=== PATIENT | male | born 1955 | race Caucasian/White ===

== ENCOUNTER 2023-12-13 03:50 | Emergency (ER) | payer OTHER ==
[~2023-12-13] VITALS: Ht 177.8 cm; Wt 79.4 kg
[~2023-12-13 03:50] MED LIST: ALLOPURINOL100 MG PO; AMITRIPTYLINE10 MG PO; CEFUROXIME AXE500 MG PO; GLUCOPHAGE500 MG PO; MELATONIN3 MG PO; MUCINEX1200 M1 PO; PRAZOSIN HCL5 MG PO; SIMVASTATIN40 MG PO; SIMVASTATIN5 MG PO; SINGULAIR10 M1 PO; SINGULAIR5 MG PO; SYMB160 INH; VENT7GM INH; ZITHROMAX250 MG PO
[2023-12-13] MEDS ORDERED: Bacitracin Zinc 14 GM TUBE T ONE (04:00)
[2023-12-13] MEDS ORDERED: Ketorolac Tromethamine 30 MG/ML VIAL IM ONE (06:50)
[2023-12-13] MEDS ORDERED: TRAMADOL HCL50 MG PO (08:31)
[2023-12-13] MEDS ORDERED: BACITRACIN28.4 GM TD (08:31)
== END 2023-12-13 08:54 | disposition home or self-care (01) ==
LOC: ED 03:50
DX: S00.81XA Abrasion of other part of head, initial encounter (principal); M54.2 Cervicalgia; G91.2 (Idiopathic) normal pressure hydrocephalus; R55 Syncope and collapse; J44.9 Chronic obstructive pulmonary disease, unspecified; K21.9 Gastro-esophageal reflux disease without esophagitis; M10.9 Gout, unspecified; E11.40 Type 2 diabetes mellitus with diabetic neuropathy, unspecified; Z88.8 Allergy status to other drugs, medicaments and biological substances; Z91.030 Bee allergy status; Z91.013 Allergy to seafood; Z98.890 Other specified postprocedural states; W19.XXXA Unspecified fall, initial encounter; Y93.89 Activity, other specified; Y92.002 Bathroom of unspecified non-institutional (private) residence as the place of occurrence of the external cause; Y99.8 Other external cause status

== ENCOUNTER 2023-12-14 14:58 | Emergency (ER) | payer OTHER ==
[~2023-12-14] VITALS: Wt 80.7 kg
[~2023-12-14 14:58] MED LIST changes: +BACITRACIN28.4 GM TD; +TRAMADOL HCL50 MG PO
[2023-12-14 15:18] LABS: BASO % 0.4 % (0.0-1.0); EOS # 0.1 10*3/uL (0.0-0.4); EOS % 1.1 % (1.0-4.0); HEMATOCRIT 38.9 % (42.0-52.0); LYMPH # 1.3 10*3/uL (1.3-4.4); LYMPH % 17.4 % (27.0-41.0); MEAN CELL VOLUME 99.7 fl (80.0-94.0); MEAN CORPUSCULAR HGB 31.8 pg (27.0-31.0); MEAN CORPUSCULAR HGB CONC 31.9 g/dl (33.0-37.0); MEAN PLATELET VOLUME 10.4 fl (9.6-12.3); MONO # 0.9 10*3/uL (0.1-1.0); MONO % 11.8 % (3.0-9.0); NEUT % 68.6 % (47.0-73.0); PLATELET COUNT AUTOMATED 239 10*3/uL (130-400); WHITE BLOOD COUNT 7.2 10*3/uL (4.8-10.8)
[2023-12-14 15:33] LABS: BUN 20 mg/dl (9-23); CHLORIDE 104 mmol/L (98-107); POTASSIUM 3.8 mmol/L (3.4-5.1)
[2023-12-14] MEDS ORDERED: ACETAMINOPHEN 325 MG TAB PO ONE (16:35)
== END 2023-12-14 19:19 | disposition home or self-care (01) ==
LOC: ED 14:58
PROVIDERS: Physician Assistant Medical
DX: S00.83XA Contusion of other part of head, initial encounter (principal); M25.512 Pain in left shoulder; M25.511 Pain in right shoulder; I10 Essential (primary) hypertension; J44.9 Chronic obstructive pulmonary disease, unspecified; R55 Syncope and collapse; K21.9 Gastro-esophageal reflux disease without esophagitis; M10.9 Gout, unspecified; E11.40 Type 2 diabetes mellitus with diabetic neuropathy, unspecified; Z88.8 Allergy status to other drugs, medicaments and biological substances; Z91.030 Bee allergy status; Z91.013 Allergy to seafood; Z98.890 Other specified postprocedural states; W19.XXXA Unspecified fall, initial encounter; Y93.89 Activity, other specified; Y92.009 Unspecified place in unspecified non-institutional (private) residence as the place of occurrence of the external cause; Y99.8 Other external cause status